=== PATIENT | female | born 1975 | race Caucasian/White ===

== ENCOUNTER 2022-01-08 11:24 | Emergency (ER) | payer SELFPAY ==
[2022-01-08] MEDS ORDERED: LORazepam 2 MG/ML VIAL ONE (11:59)
[2022-01-08 12:11] LABS: Absolute Lymphocytes (CBC) 1.8 K/uL (0.7-4.9); Hematocrit 32.3 % (36.0-45.0); Lymphocytes % 17.8 % (15.3-44.8); MPV 8.1 fL (7.6-11.3); RBC Red Blood Cell Count 5.36 M/uL (3.86-4.86)
[2022-01-08] MEDS ORDERED: LEVETIRACETAM 500 MG/5 ML VIAL IV ONE (12:13)
[2022-01-08] MEDS ORDERED: NA CHLORIDE 0.9% 100 ML ONE (12:14)
[2022-01-08 12:27] LABS: Potassium 4.2 mmol/L (3.5-5.1)
[2022-01-08 12:33] LABS: Protime INR 1.1
--- NOTE | 2022-01-08 12:54 | RAD REPORT ---
EXAM DESCRIPTION: CT - Head Brain Wo Cont - 01/08/2022 12:49 pm CLINICAL HISTORY: Seizure disorder, clinical change Headache, drowsiness, seizure COMPARISON: No comparisons TECHNIQUE: All CT scans are performed using dose optimization technique as appropriate and may inclu de automated exposure control or mA/KV adjustment according to patient size. FINDINGS: No intracranial hemorrhage, hydrocephalus or extra-axial fluid collection.No areas of brai n edema or evidence of midline shift. The paranasal sinuses and mastoids are clear. The calvarium is intact. IMPRESSION: No acute intracranial abnormality.
[2022-01-08 13:22] LABS: Anisocytosis 1+; Blood Morphology Comment NOTED (NOT SEEN); Hypochromasia 2+; Platelet Estimate ADEQ; White Blood Cell Scan OK (OK)
[2022-01-08 13:23] LABS: Poikilocytosis 1+; Polychromasia SLIGHT
[2022-01-08 13:36] LABS: Urine Blood Trace-lysed (Negative); Urine Glucose Negative (Negative); Urine Protein 1+ (Negative); Urine Specific Gravity 1.025 (1.005-1.030)
[2022-01-08 13:44] LABS: Urine Bacteria <20 /HPF (<20); Urine RBC <5 /HPF (NONE SEEN)
--- NOTE | 2022-01-08 14:50 | EDPHYS ---
Physician Documentation [facility] Name: Mago Martinez Age: 46 yrs Sex: Female : 1975 Arrival Date: 01/08/2022 Time: 11:24 Bed 4 Private MD: ED Physician Wisam Sampson HPI: 01/08 12:40 This 46 yrs old Female presents to ER via EMS with complaints of Seizure. rn 12:40 The patient presents with a history of multiple seizures, an unknown number. Character rn of seizure(s): Motor activity: generalized, Incontinence: none, Apnea: the patient did not experience apnea, Circulation: the patient did not experience evidence of pulse disturbance. Seizure onset: the onset is not known. Associated injury: The patient did not suffer any apparent associated injury. Current symptoms: confusion. The patient has experienced similar episodes in the past. The patient has not recently seen a physician. EMS reports seizures, multiple, unknown number or onset. + hx of seizures, EMS given bottle of tegretol that she has been out of for a while. Given 5mg versed and seizure stopped. 1 Seizure witnessed by EMS. . 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 - Social history:: Smoking status: unknown. - Family history:: not pertinent. - Hospitalizations: : No recent hospitalization is reported. - History obtained from: EMS. ROS: 12:40 Unable to obtain ROS due to altered mental status, postictal. rn Exam: 12:40 Constitutional: This is a well developed, well nourished patient who is somnolent, rn mumbling, post-ictal Head/Face: Normocephalic, atraumatic. Eyes: Pupils equal round and reactive to light, extra-ocular motions intact. ENT: dry MM, no tongue laceration Cardiovascular: Tachcyardic, regular. No pulse deficits. Respiratory: No increased work of breathing, no retractions or nasal flaring. Abdomen/GI: soft, non-tender Skin: Warm, dry MS/ Extremity: Pulses equal, no cyanosis. Neuro: Somnolent, mumbles with tactile and voice stimulation, moves all 4 extremities. Vital Signs: 11:15 BP 131 / 83; Pulse 116; Resp 24 S; Temp 97.7(A); Pulse Ox 100% on R/A; Weight 61.23 kg jg9 (M); Height 5 ft. 10 in. (177.80 cm) (M); 11:30 BP 105 / 67; Pulse 129; Resp 21 S; Pulse Ox 98% on R/A; jg9 13:03 BP 97 / 57; Pulse 71; Resp 16; Pulse Ox 100% ; Pain 0/10; jh6 14:30 BP 105 / 64; Pulse 72; Resp 16; Pulse Ox 100% ; Pain 3/10; jh6 15:15 BP 102 / 60; Pulse 70; Resp 16; Pulse Ox 100% ; Pain 3/10; jh6 11:15 Body Mass Index 19.37 (61.23 kg, 177.80 cm) jg9 [place] Coma Score: 11:15 Eye Response: to pain(2). Verbal Response: confused(4). Motor Response: withdraws from jg9 pain(4). Total: 10. MDM: 11:24 Patient medically screened. rn 14:47 Differential diagnosis: seizure. Data reviewed: vital signs, nurses notes, lab test rn result(s), EKG, radiologic studies, CT scan, and as a result, I will discharge patient. Counseling: I had a detailed discussion with the patient and/or guardian regarding: the historical points, exam findings, and any diagnostic results supporting the discharge/admit diagnosis, lab results, radiology results, the need for outpatient follow up, to return to the emergency department if symptoms worsen or persist or if there are any questions or concerns that arise at home. Response to treatment: the patient's symptoms have markedly improved after treatment, the patient's condition has returned to base line, the patient is now symptom free, and as a result, I will discharge patient. Special discussion: I discussed with the patient/guardian in detail that at this point there is no indication for admission to the hospital. It is understood, however, that if the symptoms persist or worsen the patient needs to return immediately for re-evaluation. Based on the history and exam findings, there is no indication for further emergent testing or inpatient evaluation. I discussed with the patient/guardian the need to see the neurologist for further evaluation of the symptoms. ED course: No acute findings in blood or CT head, family and patient want to go home, state she has been having seizures for 2 years and they know what to do, they want tegretol refilled and state was well controlled as long as has her medication. Return precautions given and understood.. 01/08 11:26 Order name: CBC with Diff; Complete Time: 14:01 rn 01/08 11:26 Order name: Basic Metabolic Panel; Complete Time: 12:59 rn 01/08 11:26 Order name: Protime (+inr); Complete Time: 12:59 rn 01/08 11:26 Order name: Ptt, Activated; Complete Time: 12:59 rn 01/08 11:26 Order name: Urine Microscopic Only; Complete Time: 14: rn 01/08 11:26 Order name: SARS-COV-2 RT PCR (Document "Date of Onset" if Symptomatic); Complete Time: rn 14:01/08 11:26 Order name: CT Head Brain wo Cont; Complete Time: 12:59 rn 01/08 11:26 Order name: IV Start; Complete Time: 12:15 rn 01/08 11:26 Order name: Urine Dipstick-Ancillary (obtain specimen); Complete Time: 14:28 rn 01/08 11:26 Order name: Urine Test (obtain specimen); Complete Time: 14:28 rn 01/08 13:23 Order name: CBC Smear Scan; Complete Time: 14:01 EDMS 01/08 13:36 Order name: Urine Dipstick-Ancillary; Complete Time: 14:01 EDMS Administered Medications: 12:18 Drug: Keppra (levETIRAcetam) 1000 mg Route: IV; Rate: calculated rate; Site: right jg9 forearm; Disposition Summary: 01/08/22 14:49 Discharge Ordered Location: Home rn Problem: an acute exacerbation rn Symptoms: have improved rn Condition: Stable rn Diagnosis - Epileptic seizures related to external causes, not intractable rn Followup: rn - With: Private Physician - When: As needed - Reason: Recheck today's complaints, Re-evaluation by your physician Discharge Instructions: - Discharge Summary Sheet rn - Seizure, Adult rn Forms: - Medication Reconciliation Form rn - Thank You Letter rn - Antibiotic furniture crater - Prescription Opioid Use rn Prescriptions: - Tegretol XR 100 mg Oral tablet extended release 12 hr - take 2 tablet by ORAL route every 12 hours; 120 tablet; Refills: 0, Product rn Selection Permitted Signatures: Dispatcher [employer] Wisam Ballard MD MD rn Gilmore, Jennifer, RN RN jg9
--- NOTE | 2022-01-08 14:50 | ER ---
Nurse's Notes [facility] Name: Mago Martinez Age: 46 yrs Sex: Female : 1975 Arrival Date: 01/08/2022 Time: 11:24 Bed 4 Private MD: Diagnosis: Epileptic seizures related to external causes, not intractable Presentation: 01/08 11:15 Chief complaint: EMS states: Patient had multiple seizures according to family patient tariqgJada has been out of her medication for close to 1 month, EMS gave 5 mg versed IM. Coronavirus screen: Vaccine status:. Ebola Screen: Patient negative for fever greater than or equal to 101.5 degrees Fahrenheit, and additional compatible Ebola Virus Disease symptoms Patient denies exposure to infectious person. Patient denies travel to an Ebola-affected area in the 21 days before illness onset. Initial Sepsis Screen: Does the patient meet any 2 criteria? RR > 20 per min. No. Patient's initial sepsis screen is negative. Does the patient have a suspected source of infection? No. Patient's initial sepsis screen is negative. Risk Assessment: Do you want to hurt yourself or someone else? Unable to obtain. Onset of symptoms is unknown. 11:15 Method Of Arrival: EMS: [facility] jg9 11:15 Acuity: PEDRO LUIS 2 jg9 Triage Assessment: 11:15 General: Appears in no apparent distress. Behavior is unresponsive. Pain: Unable to use jg9 pain scale. Patient is unresponsive. Neuro: Level of Consciousness is confused, Oriented to. Cardiovascular: Rhythm is sinus rhythm. Respiratory: No deficits noted. GI: No deficits noted. : No deficits noted. Derm: No deficits noted. Musculoskeletal: No deficits noted. 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 - Social history:: Smoking status: unknown. - Family history:: not pertinent. - Hospitalizations: : No recent hospitalization is reported. - History obtained from: EMS. Screenin:52 Abuse screen: unable to determine due to altered mental status (postictal). Nutritional jg9 screening: No deficits noted. Tuberculosis screening: No symptoms or risk factors identified. Fall Risk None identified. Assessment: 11:54 Neuro: Level of Consciousness is awake, confused. jg9 12:24 Reassessment: No changes from previously documented assessment. Patient and/or family jh6 updated on plan of care and expected duration. Pain level reassessed. Spouse at bedside helping contain pt to bed, pt still confused to place and time. 13:02 Reassessment: Patient and/or family updated on plan of care and expected duration. Pain jh6 level reassessed. pt resting eyes closed. spouse at bedside and pt is able to follow commands. Patient denies pain at this time. 14:00 Reassessment: Patient and/or family updated on plan of care and expected duration. Pain jh6 level reassessed. pt ambulatory with assistance to bathroom. reporting guevara present but no different then usual guevara after seizures. Patient states symptoms have improved. 15:25 Reassessment: Patient and/or family updated on plan of care and expected duration. Pain jh6 level reassessed. Patient is alert, oriented x 3, equal unlabored respirations, skin warm/dry/pink. family at bedside .pt alert c/o guevara but able to answer all questions and converse with provider without issue Patient states feeling better. Patient states symptoms have improved. Vital Signs: 11:15 BP 131 / 83; Pulse 116; Resp 24 S; Temp 97.7(A); Pulse Ox 100% on R/A; Weight 61.23 kg jg9 (M); Height 5 ft. 10 in. (177.80 cm) (M); 11:30 BP 105 / 67; Pulse 129; Resp 21 S; Pulse Ox 98% on R/A; jg9 13:03 BP 97 / 57; Pulse 71; Resp 16; Pulse Ox 100% ; Pain 0/10; jh6 14:30 BP 105 / 64; Pulse 72; Resp 16; Pulse Ox 100% ; Pain 3/10; jh6 15:15 BP 102 / 60; Pulse 70; Resp 16; Pulse Ox 100% ; Pain 3/10; jh6 11:15 Body Mass Index 19.37 (61.23 kg, 177.80 cm) jg9 [place] Coma Score: 11:15 Eye Response: to pain(2). Verbal Response: confused(4). Motor Response: withdraws from jg9 pain(4). Total: 10. ED Course: 11:24 Patient arrived in ED. rn 11:24 Wisam Sampson MD is Attending Physician. rn 11:25 Breanne Donis, ERVIN is Primary Nurse. jg9 11:30 Patient has correct armband on for positive identification. Bed in low position. Call jg9 light in reach. Side rails up X 1. Seizure precautions initiated. 11:30 No provider procedures requiring assistance completed. Maintain EMS IV. Dressing jh6 intact. Good blood return noted. Site clean \T\ dry. Gauge \T\ site: 18g to rt ac. 11:50 Triage completed. jg9 11:53 Arm band placed on right wrist. jg9 12:[address] via stretcher. jh6 12:50 CT Head Brain wo Cont In Process Unspecified. EDMS 13:00 Patient moved back from CT. jh6 13:05 No apparent distress. Appears to be sleeping. Awaiting lab results, Awaiting radiology jg9 results. 15:15 IV discontinued, intact, bleeding controlled, No redness/swelling at site. Pressure jh6 dressing applied. Administered Medications: 12:18 Drug: Keppra (levETIRAcetam) 1000 mg Route: IV; Rate: calculated rate; Site: right jg9 forearm; Medication: 11:53 VIS not applicable for this client. jg9 Outcome: 14:49 Discharge ordered by . rn 15:26 Discharged to home via wheelchair. jh6 15:26 Condition: improved 15:26 Discharge instructions given to patient, family, Instructed on discharge instructions, follow up and referral plans. Demonstrated understanding of instructions, follow-up care, medications, Prescriptions given X 1. 15:27 Patient left the ED. 6 Signatures: Dispatcher [employer] EDND Wisam Sampson MD MD rn Hastedt, Jennifer, RN RN jh6 Breanne Donis RN RN jg9
[2022-01-08 15:48] VITALS: O2SAT 100
[2022-01-08 15:59] VITALS: BP 102/60
== END 2022-01-08 15:27 | disposition home or self-care (01) ==
LOC: ER 11:24
DX: G40.509 Epileptic seizures related to external causes, not intractable, without status epilepticus (principal); Z88.0 Allergy status to penicillin; Z20.822 Contact with and (suspected) exposure to COVID-19
CPT/HCPCS: 36415; 70450; 80048; 81003; 81015; 85025; 85610; 85730; 96374; 99285; J1953; U0003

== ENCOUNTER 2023-03-01 10:26 | Emergency (ER) | payer SELFPAY ==
--- OUTSIDE RECORDS SUMMARY | 2023-03-01 10:29 | XMS REPORT | Continuity of Care Document ---
:1975 Author Organization [facility] t Address [address] [place] [address] Care Team Providers Name Role Phone Rhoda Ureña Primary Care Physician [phone] Problems This patient has no known problems. Allergies, Adverse Reactions, Alerts Allergy Allergy Status Severity Reaction(s) Onset Inactive Treating Comm ents Source Name Type Date Date Clinician Amoxicil Propensi Active lien - ty to 8-10 Oral adverse 00:00: reaction 00 to drug Penicill Propensi Active 2019-07 ins ty to 1-19 adverse 00:00: reaction 00 to drug Medications Ordered Filled Start Stop Current Ordering Indication Dosage Frequency Signature Comments Components Source Medication Medication Date Date Medication? Clinician (SIG) Name Name TAKE 1 No 200 TABLET 8-15 TWICE 00:00: DAILY. 00 TAKE 2021-0 No TABLET 8-15 TWICE 00:00: DAILY. 00 Dose 2020-0 No Unknown 5-17 00:00: 00 Tegretol XR 2020-0 No 2mg 100 mg 5-17 tablet,exte 00:00: nded 00 release Dose 2020-0 No Unknown 1-28 00:00: 00 Tegretol XR 2020-0 No 2mg 100 mg 1-28 tablet,exte 00:00: nded 00 release Dose 2019- No Unknown 2-11 00:00: 00 Tegretol XR 2019- No 2mg 100 mg 2-11 tablet,exte 00:00: nded 00 release levetiracet 2019-1 No 1mg am 500 mg 1-19 tablet 00:00: 00 levetiracet 2019- No 1mg am 500 mg 1-19 tablet 00:00: 00 Tegretol XR 2019- No 1mg 100 mg 1-19 tablet,exte 00:00: nded 00 release Tegretol XR 2019-07 No 1mg 100 mg 1-19 tablet,exte 00:00: nded 00 release Vital Signs Vital Name Observation Time Observation Value Comments Source BP Systolic 2022-05-24 16:38:00 BP Diastolic 2022-05-24 16:38:00 Weight Measured 2022-05-24 16:38:00 134.60 pounds Height Measured 2022-05-24 16:38:00 69.00 inches Body Temperature 2022-05-24 16:38:00 Heart Rate 2022-05-24 16:38:00 Respiratory Rate 2022-05-24 16:38:00 BP Systolic 2022-03-12 09:42:00 129 mm[Hg] BP Diastolic 2022-03-12 09:42:00 82 mm[Hg] Weight Measured 2022-03-12 09:42:00 134.60 pounds Height Measured 2022-03-12 09:42:00 69.00 inches Body Temperature 2022-03-12 09:42:00 98.00 degrees Heart Rate 2022-03-12 09:42:00 80.00 /min Respiratory Rate 2022-03-12 09:42:00 18.00 /min BP Systolic 2020-12-12 13:19:00 125 mm[Hg] BP Diastolic 2020-12-12 13:19:00 74 mm[Hg] Weight Measured 2020-12-12 13:19:00 161.80 pounds Height Measured 2020-12-12 13:19:00 69.00 inches Body Temperature 2020-12-12 13:19:00 98.00 degrees Heart Rate 2020-12-12 13:19:00 97.00 /min Respiratory Rate 2020-12-12 13:19:00 BP Systolic 2020-08-25 14:05:00 128 mm[Hg] BP Diastolic 2020-08-25 14:05:00 76 mm[Hg] Weight Measured 2020-08-25 14:05:00 168.00 pounds Height Measured 2020-08-25 14:05:00 69.00 inches Body Temperature 2020-08-25 14:05:00 98.30 degrees Heart Rate 2020-08-25 14:05:00 98.00 /min Respiratory Rate 2020-08-25 14:05:00 16.00 /min BP Systolic 2020-07-07 13:25:00 118 mm[Hg] BP Diastolic 2020-07-07 13:25:00 79 mm[Hg] Weight Measured 2020-07-07 13:25:00 160.20 pounds Height Measured 2020-07-07 13:25:00 69.00 inches Body Temperature 2020-07-07 13:25:00 97.30 degrees Heart Rate 2020-07-07 13:25:00 89.00 /min Respiratory Rate 2020-07-07 13:25:00 16.00 /min BP Systolic 2020-06-16 10:25:00 128 mm[Hg] BP Diastolic 2020-06-16 10:25:00 64 mm[Hg] Weight Measured 2020-06-16 10:25:00 Height Measured 2020-06-16 10:25:00 69.00 inches Body Temperature 2020-06-16 10:25:00 98.90 degrees Heart Rate 2020-06-16 10:25:00 64.00 /min Respiratory Rate 2020-06-16 10:25:00 17.00 /min Procedures Procedure Date / Time Performed Performing Clinician Sourc e Ekg 2020-07-07 00:00:00 Plan of Care Planned Activity Planned Date Details Comments Source Goal Plan of Care Note [code = 04276-4] Goal Plan of Care Note [code = 45048-7] Goal Plan of Care Note [code = 74338-7] Goal Plan of Care Note [code = 01737-8] Goal Plan of Care Note [code = 24227-6] Goal Plan of Care Note [code = 51065-1] Encounters Start End Encounter Admission Attending Care Care Encounter Source Date/Time Date/Time Type Type Clinicians Facility Department ID 2022-09-12 2022-09-[address] [facility] [id number] Yared 15:08:13 15:08:13 0215 F Basil 2022-05-28 2022-05-28 Outpatient SFA [facility] [id number] Yared 14:00:30 14:00:30 1031 F Basil 2022-05-24 2022-05-24 Outpatient [id number] 00:00:00 00:00:00 Visit [id number] 2022-03-12 2022-03-12 Outpatient [id number] 00:00:00 00:00:00 Visit [id number] Results Test Description Test Time Test Comments Results Result Comments Source CARBAMAZEPINE (TEGRETOL) 2022-03-13 04:15:58 Test Item Value Reference Range Interpretation Comme nts CARBAMAZEPINE (TEGRETOL) (test 2.0 UG/ML 4.0-12.0 L UNLESS OTHERWISE INDICATED, ALL code = 3006) TESTING PERFORM ED ATCLINICAL PATHOLOGY [facility]. [address] [place] [id number] LABORATORY DIRE CTOR: WADE BOYLE M.D. CLIA NUMBER [id number] [facility] [place]. [id number] CARBAMAZEPINE (TEGRETOL)2022-03-13 00:00:00 Test Item Value Reference Range Interpretation Comments CARBAMAZEPINE (TEGRETOL) (test code 2.0 UG/ML = 3006) CARBAMAZEPINE (TEGRETOL)2022-03-13 00:00:00 Test Item Value Reference Range Interpretation Comments CARBAMAZEPINE (TEGRETOL) (test code 2.0 UG/ML = 3006) CARBAMAZEPINE (TEGRETOL)2022-03-13 00:00:00 Test Item Value Reference Range Interpretation Comments CARBAMAZEPINE (TEGRETOL) (test code 2.0 UG/ML = 3006) CARBAMAZEPINE (TEGRETOL)2020-07-08 00:00:00 Test Item Value Reference Range Interpretation Comments CARBAMAZEPINE (TEGRETOL) (test code 2.5 UG/ML = 3006) CARBAMAZEPINE (TEGRETOL)2020-07-08 00:00:00 Test Item Value Reference Range Interpretation Comments CARBAMAZEPINE (TEGRETOL) (test code 2.5 UG/ML = 3006) CARBAMAZEPINE (TEGRETOL)2020-07-08 00:00:00 Test Item Value Reference Range Interpretation Comments CARBAMAZEPINE (TEGRETOL) (test code 2.5 UG/ML = 3006) CARBAMAZEPINE (TEGRETOL)2020-07-08 00:00:00 Test Item Value Reference Range Interpretation Comments CARBAMAZEPINE (TEGRETOL) (test code 2.5 UG/ML = 3006) CARBAMAZEPINE (TEGRETOL)2020-07-08 00:00:00 Test Item Value Reference Range Interpretation Comments CARBAMAZEPINE (TEGRETOL) (test code 2.5 UG/ML = 3006) CARBAMAZEPINE (TEGRETOL)2020-07-08 00:00:00 Test Item Value Reference Range Interpretation Comments CARBAMAZEPINE (TEGRETOL) (test code 2.5 UG/ML = 3006)
[2023-03-01] MEDS ORDERED: KETOROLAC 30 MG/ML INJ ONE (12:13)
[2023-03-01 12:18] LABS: Hematocrit 33.3 % (36.0-45.0); Lymphocytes % 21.6 % (15.3-44.8); MPV 6.5 fL (7.6-11.3)
[2023-03-01 12:39] LABS: Albumin 3.8 g/dL (3.4-5.0); Bilirubin Total 0.2 mg/dL (0.2-1.0); Potassium 3.3 mEq/L (3.5-5.1); Protein, Total 7.8 g/dL (6.4-8.2)
--- NOTE | 2023-03-01 12:48 | RAD REPORT ---
EXAM DESCRIPTION: CTFacial Bones W Con Mpr03/01/2023 12:30 pm CLINICAL HISTORY: Right facial pain and swelling COMPARISON: None. TECHNIQUE: Computed axial tomography of the face obtained with coronal and sagittal reconstruction. 50 cc Isovue-[address] scans are performed using dose optimization technique as appropriate and may include automated exposure control or mA/KV adjustment according to patient size. FINDINGS: Decay involve several mandibular and maxillary teeth. 7 millimeter apical right posterior mandibular tooth abscess. Additional smaller apical right posteri or mandibular tooth abscess. There is edema within adjacent tissues. No fluid-filled abscess seen. The parotid and submandibular glands appear unremarkable. Visualized airway unremarkable The parapharyngeal fat is clear. No fluid within the sinuses/mastoids. IMPRESSION: Two right mandibular apical tooth abscesses
[2023-03-01 12:53] LABS: Anisocytosis 2+; Blood Morphology Comment NOTED (NOT SEEN); Hypochromasia 1+; Platelet Estimate ADEQ; White Blood Cell Scan OK (OK)
--- NOTE | 2023-03-01 13:04 | ER ---
Nurse's Notes [facility] Name: Mago Martinez Age: 47 yrs Sex: Female : 1975 Arrival Date: 03/01/2023 Time: 10:26 Bed 11 Private MD: Diagnosis: Periapical abscess without sinus Presentation: 03/01 10:47 Chief complaint: Patient states: Severe R sided facial/ ear pain that began a couple ss weeks ago, stopped, but came back again 2 days ago. Coronavirus screen: Client denies travel out of the [place] in the last 14 days. Ebola Screen: Patient denies exposure to infectious person. Patient denies travel to an Ebola-affected area in the 21 days before illness onset. Initial Sepsis Screen: Does the patient meet any 2 criteria? No. Patient's initial sepsis screen is negative. Does the patient have a suspected source of infection? No. Patient's initial sepsis screen is negative. Risk Assessment: Do you want to hurt yourself or someone else? Patient reports no desire to harm self or others. Onset of symptoms is unknown. 10:47 Method Of Arrival: Ambulatory ss 10:47 Acuity: PEDRO LUIS 4 ss Historical: - Allergies: 10:48 PENICILLINS; ss 10:48 Amoxicillin; ss 10:48 Dilantin; ss 10:48 Keppra; ss - Home Meds: 10:48 Tegretol Oral [Active]; ss - PMHx: 10:48 Seizure; ss Screenin:15 [facility] ED Fall Risk Assessment (Adult) History of falling in the last 3 months, mb9 including since admission No falls in past 3 months (0 pts) Confusion or Disorientation No (0 pts) Intoxicated or Sedated No (0 pts) Impaired Gait No (0 pts) Mobility Assist Device Used No (0 pt) Altered Elimination No (0 pt) Score/Fall Risk Level 0 - 2 = Low Risk Oriented to surroundings, Maintained a safe environment, Educated pt \T\ family on fall prevention, incl call for assistance when getting out of bed. Abuse screen: Denies threats or abuse. Nutritional screening: No deficits noted. Tuberculosis screening: No symptoms or risk factors identified. Assessment: 12:13 General: Appears uncomfortable, Behavior is calm, cooperative. Pain: Complains of pain mb9 in right ear Pain radiates to jaw Pain currently is 10 out of 10 on a pain scale. Quality of pain is described as throbbing, Is continuous. Neuro: Scott Agitation-Sedation Scale (RASS): 0 - Alert and Calm Level of Consciousness is awake, alert, obeys commands, Oriented to person, place, time, situation, Appropriate for age. Cardiovascular: Patient's skin is warm and dry. Respiratory: Airway is patent Respiratory effort is even, unlabored, Respiratory pattern is regular, symmetrical. GI: Reports diarrhea. : No signs and/or symptoms were reported regarding the genitourinary system. EENT: Ear canal. Derm: Skin is pink, warm \T\ dry. Musculoskeletal: Range of motion: intact in all extremities. 13:15 Reassessment: Patient appears in no apparent distress at this time. Patient and/or ss family updated on plan of care and expected duration. Pain level reassessed. Respiratory: Airway is patent Respiratory effort is even, unlabored, Respiratory pattern is regular, symmetrical. Vital Signs: 10:47 Pulse 80; Resp 16; Temp 98(O); Pulse Ox 100% on R/A; Weight 63.5 kg; Height 5 ft. 9 in. ss ; 12:35 BP 134 / 71; Pulse 58; Resp 16; Pulse Ox 100% ; mb9 13:14 BP 132 / 69; Pulse 61; Resp 16; Pulse Ox 97% on R/A; ss 10:47 Body Mass Index 20.67 (63.50 kg, 175.26 cm) ED Course: 10:29 Patient arrived in ED. im 10:48 Triage completed. ss 10:48 Arm band placed on right wrist. ss 11:04 Jeremy Dillon MD is Attending Physician. rt 11:48 Janeth Chou, ERVIN is Primary Nurse. ss 12:13 CMP Sent. mb9 12:13 CBC with Diff Sent. mb9 12:13 Inserted saline lock: 22 gauge in right antecubital area, using aseptic technique. mb9 12:14 Bed in low position. Call light in reach. Side rails up X 1. Client placed on mb9 continuous cardiac and pulse oximetry monitoring. NIBP monitoring applied. 12:32 CT Facial Bones W/ Con \T\ Mpr In Process Unspecified. EDMS 12:35 Inserted saline lock: 22 gauge in left antecubital area, using aseptic technique. mb9 13:15 No provider procedures requiring assistance completed. Patient did not have IV access ss during this emergency room visit. Administered Medications: 12:13 Drug: Ketorolac IVP 15 mg Route: IVP; Site: right antecubital; mb9 13:15 Follow up: Response: No adverse reaction ss Medication: 12:15 VIS not applicable for this client. mb9 Outcome: 13:03 Discharge ordered by . rt 13:15 Discharged to home ambulatory. ss 13:15 Condition: good 13:15 Discharge instructions given to patient, Instructed on discharge instructions, follow up and referral plans. medication usage, Demonstrated understanding of instructions, follow-up care, medications, Prescriptions given X 1. 13:17 Patient left the ED. ss Signatures: Dispatcher [employer] EDMS Janeth Chou RN RN ss Krissy Curtis RN RN mb9 Jeremy Dillon MD MD rt Imelda Thompson im
--- NOTE | 2023-03-01 13:04 | EDPHYS ---
Physician Documentation [facility] Name: Mago Martinez Age: 47 yrs Sex: Female : 1975 Arrival Date: 03/01/2023 Time: 10:26 Bed 11 Private MD: ED Physician Jeremy Dillon HPI: 03/01 13:10 This 47 yrs old Female presents to ER via Ambulatory with complaints of Ear Pain, Neck rt Pain, >24Hrs Old. 13:10 Patient presents to the ED with a right-sided facial pain, rating from her mandible, rt posteroinferior to the ear on the right side. Denies having seen a dentist in some time. Ibuprofen, BC powders not adequately relieved her symptoms. Denies other aggravating alleviating factors. Symptoms are moderate severity, aching nature.. Historical: - Allergies: 10:48 PENICILLINS; ss 10:48 Amoxicillin; ss 10:48 Dilantin; ss 10:48 Keppra; ss - Home Meds: 10:48 Tegretol Oral [Active]; ss - PMHx: 10:48 Seizure; ss ROS: 13:10 Constitutional: Negative for fever, chills, and weight loss, Cardiovascular: Negative rt for chest pain, palpitations, and edema, Respiratory: Negative for shortness of breath, cough, wheezing, and pleuritic chest pain, Abdomen/GI: Negative for abdominal pain, nausea, vomiting, diarrhea, and constipation, Skin: Negative for injury, rash, and discoloration, Neuro: Negative for headache, weakness, numbness, tingling, and seizure, Psych: Negative for depression, anxiety, suicide ideation, homicidal ideation, and hallucinations. 13:10 ENT: Positive for dental pain, ear pain. Exam: 13:10 Constitutional: This is a well developed, well nourished patient who is awake, alert, rt and in no acute distress. Head/Face: Normocephalic, atraumatic. Neck: Trachea midline, no thyromegaly or masses palpated, and no cervical lymphadenopathy. Supple, full range of motion without nuchal rigidity, or vertebral point tenderness. No Meningismus. Chest/axilla: Normal chest wall appearance and motion. Nontender with no deformity. No lesions are appreciated. Cardiovascular: Regular rate and rhythm with a normal S1 and S2. No gallops, murmurs, or rubs. Normal PMI, no JVD. No pulse deficits. Respiratory: Lungs have equal breath sounds bilaterally, clear to auscultation and percussion. No rales, rhonchi or wheezes noted. No increased work of breathing, no retractions or nasal flaring. Abdomen/GI: Soft, non-tender, with normal bowel sounds. No distension or tympany. No guarding or rebound. No evidence of tenderness throughout. Skin: Warm, dry with normal turgor. Normal color with no rashes, no lesions, and no evidence of cellulitis. MS/ Extremity: Pulses equal, no cyanosis. Neurovascular intact. Full, normal range of motion. Neuro: Awake and alert, GCS 15, oriented to person, place, time, and situation. Cranial nerves II-XII grossly intact. Motor strength 5/5 in all extremities. Sensory grossly intact. Cerebellar exam normal. Normal gait. Psych: Awake, alert, with orientation to person, place and time. Behavior, mood, and affect are within normal limits. 13:10 ENT: Multiple dental caries noted, no posterior pharyngeal erythema, no exudates, tonsillar hypertrophy, TM is clear on the right side.. Vital Signs: 10:47 Pulse 80; Resp 16; Temp 98(O); Pulse Ox 100% on R/A; Weight 63.5 kg; Height 5 ft. 9 in. ss ; 12:35 BP 134 / 71; Pulse 58; Resp 16; Pulse Ox 100% ; mb9 13:14 BP 132 / 69; Pulse 61; Resp 16; Pulse Ox 97% on R/A; ss 10:47 Body Mass Index 20.67 (63.50 kg, 175.26 cm) ss MDM: 11:15 Patient medically screened. rt 13:10 Differential diagnosis: Dental abscess, deep space infection, otitis media. Data rt reviewed: vital signs, nurses notes, lab test result(s), radiologic studies. Independent interpretation of the following test(s) in the Emergency Department CT Scan: My interpretation is No peritonsillar abscess, seen on my interpretation of the CT scan images. Test considered but Not performed: Labs: Symptoms not consistent with Streptococcus, strep skin not indicated. Counseling: I had a detailed discussion with the patient and/or guardian regarding: the historical points, exam findings, and any diagnostic results supporting the discharge/admit diagnosis, lab results, radiology results, the need for outpatient follow up, a dentist. 03/01 11:23 Order name: CBC with Diff; Complete Time: 12:53 rt 03/01 11:23 Order name: CMP; Complete Time: 12:53 rt 03/01 12:22 Order name: CBC Smear Scan; Complete Time: 12:53 EDMS 03/01 11:23 Order name: CT Facial Bones W/ Con \T\ Mpr; Complete Time: 12:53 rt Administered Medications: 12:13 Drug: Ketorolac IVP 15 mg Route: IVP; Site: right antecubital; mb9 13:15 Follow up: Response: No adverse reaction ss Disposition Summary: 03/01/23 13:03 Discharge Ordered Location: Home rt Problem: new rt Symptoms: are unchanged rt Condition: Stable rt Diagnosis - Periapical abscess without sinus rt Followup: rt - With: Private Physician - When: 2 - 3 days - Reason: Discharge Instructions: - Discharge Summary Sheet rt - Dental Abscess rt Forms: - Medication Reconciliation Form rt - Thank You Letter rt - Antibiotic Education rt - Prescription Opioid Use rt - Patient Portal Instructions rt Prescriptions: - Clindamycin HCl 300 mg Oral Capsule - take 1 capsule by ORAL route every 6 hours for 10 days; 40 capsule; Refills: 0, rt Product Selection Permitted Signatures: Dispatcher [employer] Janeth Parrish, RN RN ss Krissy Curtis RN RN mb9 Jeremy Dillon MD MD rt
[2023-03-01 13:44] VITALS: TEMP 98
[2023-03-01 13:46] VITALS: BP 132/69; O2SAT 97
== END 2023-03-01 13:17 | disposition home or self-care (01) ==
LOC: ER 10:26
DX: K04.7 Periapical abscess without sinus (principal)
CPT/HCPCS: 36415; 70487; 76377; 80053; 85025; 96374; 99284; Q9967